=== PATIENT | female | born 1970 | race Caucasian/White ===

== ENCOUNTER → 2017-04-01 | Outpatient (CLI) | payer OTHER ==
--- NOTE | 2017-04-01 09:09 | Diagnostic Imaging Report ---
Bilateral diagnostic mammogram. The current study was also evaluated with a Computer Aided Detection (CAD) system. INDICATION: Bilateral breast pain. COMPARISON: 07/27/2011. FINDINGS: The breasts are composed of scattered fibroglandular densities. There are scattered benign-appearing calcifications. In the lateral aspect of the right CC projection, there is a 6 mm asymmetry which is evaluated with focal compression view. This demonstrates less prominent appearance of the asymmetry similar to the rest of the parenchyma suggestive of summation artifact. IMPRESSION: No mammographic evidence of malignancy. Ultrasound evaluation pending. ACR BI-RADS Category 0: Incomplete. (Needs additional imaging evaluation). Result letter will be mailed to the patient. Note: At least 10% of breast cancer is not imaged by mammography. Dictated by: Dictated on workstation # [id number]
--- NOTE | 2017-04-01 20:29 | Diagnostic Imaging Report ---
Bilateral breast ultrasound. INDICATION: Breast pain. FINDINGS: The four quadrants and retroareolar region of each breast were scanned with no underlying abnormality seen. IMPRESSION: Negative study. Clinical follow-up of patient's complaints recommended. ACR BI-RADS Category 1: Negative. Dictated by: Dictated on workstation # [id number]
== END ==
LOC: RAD 07:28
PROVIDERS: ATTEND Family Medicine
DX: N64.4 Mastodynia (principal)
CPT/HCPCS: 77066

== ENCOUNTER 2017-05-27 18:23 | Emergency (ER) | payer OTHER ==
[~2017-05-27] VITALS: Ht 170.2 cm; Wt 90.7 kg
--- NOTE | 2017-05-27 18:45 | ED General ---
General Chief Complaint: General Problems/Pain Stated Complaint: BODY ACHES,FATIGUE History of Present Illness Time Seen by Provider: 18:32 Initial Comments patient reports by private conveyance with her with a chief complaint of feeling terrible. Earlier received a call from Zoe the nurse practitioner from Dr. Eisenberg's office that the patient would be coming in because she has been recently being treated and worked up for anemia. 6 weeks ago her hemoglobin was 10.3 and she was started on iron tablets. And 2 weeks ago she was seen in the clinic and had completed a month of iron but her hemoglobin had dropped down to 7. The patient denies any blood in her vomitus or stools. No black tarry stools except when she started the iron. She is not had a period since 2011 when she had a uterine ablation at the same time she had a bladder mesh placed. She states she had a fecal occult blood test done one time in the clinic that was negative. She states she has nausea daily but this is been going on for years and she associates it with her copious rhino-secretions. she denies any blood in her vomiting. She states she does not have a doctor much and while she takes lisinopril Hydrocort thiazide, for her blood pressure she does not have any other medical history. No family history of heart disease and early age. She denies hypothyroidism or diabetes. She states she is not having any chest pain or shortness of breath however she has some left upper quadrant abdominal tenderness for the past several weeks. She had a bowel movement regular this morning but she takes laxatives daily because she has chronic constipation. Allergies and Home Medications Allergies Coded Allergies: ketorolac (Unverified Allergy, Intermediate, hives, 05/27/17) Home Medications Cephalexin 500 Mg Capsule, 500 MG PO BID for 4 Days, #8 Ref 0 Prescribed by: CESAR RODARTE on 05/27/172007 Constitutional: No chills, No diaphoresis, No dizziness, No fever, malaise EENTM: No ear pain, No eye pain, No nose congestion, No throat pain Respiratory: No cough, No short of breath Cardiovascular: No chest pain, No edema, No syncope Gastrointestinal: No abdominal pain, No constipation, No diarrhea, No nausea, No vomiting Genitourinary: No discharge, No dysuria, No incontinence Musculoskeletal: No back pain, No joint pain Skin: No pruritus, No rash Past Bubapod-Scpqci-Mnafmv Hx Patient Social History Alcohol Use: Denies Use Recreational Drug Use: No Recent Foreign Travel: No Contact w/Someone Who Travel: No Physical Exam Vital Signs Vital Sign - Last 12Hours 05/27/17 05/27/17 18:36 20:30 Temp 97.8 Pulse 90 Resp 16 B/P (MAP) 145/96 Pulse Ox 98 O2 Delivery Room Air Capillary Refill : General Appearance: No Apparent Distress, WD/WN Eyes: Bilateral Eye EOMI, Bilateral Eye Normal Inspection, Bilateral Eye PERRL HEENT: PERRL/EOMI, TMs Normal, Normal ENT Inspection, Pharynx Normal Neck: Full Range of Motion, Supple Respiratory: Chest Non Tender, Lungs Clear, Normal Breath Sounds Cardiovascular: Regular Rate, Rhythm, No Edema, No JVD Gastrointestinal: Normal Bowel Sounds, No Organomegaly, Soft Extremity: Normal Capillary Refill, No Pedal Edema Neurologic/Psychiatric: Alert, Oriented x3 Skin: Normal Color, Warm/Dry Progress/Results/Core Measures Results/Orders Lab Results Laboratory Tests Test 05/27/17 18:50 05/27/17 19:00 Range/Units Urine Color YELLOW Urine Clarity SLIGHTLY CLOUDY Urine pH 5 5-9 Urine Specific [place] 1.020 1.016-1.022 Urine Protein NEGATIVE NEGATIVE Urine Glucose (UA) NEGATIVE NEGATIVE Urine Ketones NEGATIVE NEGATIVE Urine Nitrite POSITIVE H NEGATIVE Urine Bilirubin NEGATIVE NEGATIVE Urine Urobilinogen NORMAL NORMAL MG/DL Urine Leukocyte Esterase 2+ H NEGATIVE Urine RBC (Auto) 2+ H NEGATIVE Urine RBC 2-5 H /HPF Urine WBC 2-5 /HPF Urine Squamous Epithelial Cells 10-25 H /HPF Urine Crystals NONE /LPF Urine Bacteria MODERATE H /HPF Urine Casts NONE /LPF Urine Mucus NEGATIVE /LPF Urine Culture Indicated NO White Blood Count 9.5 4.3-11.0 10^3/uL Red Blood Count 4.25 L 4.35-5.85 10^6/uL Hemoglobin 11.3 L 11.5-16.0 G/DL Hematocrit 36 35-52 % Mean Corpuscular Volume 84 80-99 FL Mean Corpuscular Hemoglobin 27 25-34 PG Mean Corpuscular Hemoglobin Concent 32 32-36 G/DL Red Cell Distribution Width 15.0 H 10.0-14.5 % Platelet Count 296 130-400 10^3/uL Mean Platelet Volume 9.6 7.4-10.4 FL Neutrophils (%) (Auto) 65 42-75 % Lymphocytes (%) (Auto) 23 12-44 % Monocytes (%) (Auto) 7 0-12 % Eosinophils (%) (Auto) 4 0-10 % Basophils (%) (Auto) 0 0-10 % Neutrophils # (Auto) 6.2 1.8-7.8 X 10^3 Lymphocytes # (Auto) 2.2 1.0-4.0 X 10^3 Monocytes # (Auto) 0.7 0.0-1.0 X 10^3 Eosinophils # (Auto) 0.4 H 0.0-0.3 10^3/uL Basophils # (Auto) 0.0 0.0-0.1 10^3/uL Prothrombin Time 13.1 12.2-14.7 SEC INR Comment 1.0 0.8-1.4 Activated Partial Thromboplast Time 25 24-35 SEC Sodium Level 138 135-145 MMOL/L Potassium Level 3.7 3.6-5.0 MMOL/L Chloride Level 99 98-107 MMOL/L Carbon Dioxide Level 25 21-32 MMOL/L Anion Gap 14 5-14 MMOL/L Blood Urea Nitrogen 14 7-18 MG/DL Creatinine 0.96 0.60-1.30 MG/DL Estimat Glomerular Filtration Rate > 60 BUN/Creatinine Ratio 15 Glucose Level 96 70-105 MG/DL Calcium Level 9.7 8.5-10.1 MG/DL Magnesium Level 2.1 1.8-2.4 MG/DL Total Bilirubin 0.3 0.1-1.0 MG/DL Aspartate Amino Transf (AST/SGOT) 14 5-34 U/L Alanine Aminotransferase (ALT/SGPT) 18 0-55 U/L Alkaline Phosphatase 90 40-136 U/L Total Protein 8.7 H 6.4-8.2 GM/DL Albumin 4.1 3.2-4.5 GM/DL Thyroid Stimulating Hormone (TSH) 1.01 0.35-4.94 UIU/ML My Orders Orders - CESAR RODARTE Cbc With Automated Diff (05/27/17 18:46) Comprehensive Metabolic Panel (05/27/17 18:46) Protime With Inr (05/27/17 18:46) Partial Thromboplastin Time (05/27/17 18:46) Thyroid Stimulating Hormone (05/27/17 18:46) Ua Culture If Indicated (05/27/17 18:46) Saline Lock/Iv-Start (05/27/17 18:46) Ns Iv 500 Ml (Sodium Chloride 0.9%) (05/27/17 18:46) Magnesium (05/27/17 18:46) Ceftriaxone Injection (Rocephin Injectio (05/27/17 20:15) Medications Given in ED Current Medications Medications Dose Ordered Sig/Milind Route Start Time Stop Time Status Last Admin Dose Admin Ceftriaxone Sodium 1000 mg/ Sodium Chloride 50 ml @ 100 mls/hr ONCE ONCE IV 05/27/17 20:15 05/27/17 20:44 DC 05/27/17 20:09 100 MLS/HR Sodium Chloride 500 ml @ 0 mls/hr Q0M ONCE IV 05/27/17 18:46 05/27/17 18:50 DC 05/27/17 19:16 0 MLS/HR Vital Signs/I&O Vital Sign - Last 12Hours 05/27/17 05/27/17 18:36 20:30 Temp 97.8 97.5 Pulse 90 72 Resp 16 16 B/P (MAP) 145/96 Pulse Ox 98 O2 Delivery Room Air Progress Note : Time: 02:18 Progress Note Hemoglobin is better than 6 weeks ago. However she has a UTI which makes points to her symptoms. We'll treat her appropriately. Departure Impression Impression: Primary Impression: UTI (urinary tract infection) Qualified Codes: N30.00 - Acute cystitis without hematuria Additional Impression: Anemia Qualified Codes: D64.9 - Anemia, unspecified Disposition: 01 HOME, SELF-CARE Condition: Stable Departure-Patient Inst. Decision time for Depature: 20:06 Referrals: CHRISTOPHER EISENBERG MD (PCP/Family) Primary Care Physician Patient Instructions: Urinary Tract Infection, Adult (DC) Add. Discharge Instructions: You have been given antibiotics for urinary tract infection in the hospital tonight. Tomorrow morning sisal picker your antibiotics and start taking them one capsule by mouth twice daily with some food. Take until completion. If you started having fevers or new worrisome symptoms you can return to the ER or follow up with your primary care physician. Please follow up your anemia with your primary care physician. All discharge instructions reviewed with patient and/or family. Voiced understanding. Scripts Cephalexin (Keflex) 500 Mg Capsule 500 MG PO BID for 4 Days, #8 CAP 0 Refills Prov: CESAR RODARTE 05/27/17 Copy Copies To 1: CHRISTOPHER EISENBERG MD, TITUS J May 27, 2017 18:45
[2017-05-27] MEDS ORDERED: NS IV 500 ML 500 ML IV ONE (18:46)
[2017-05-27 18:59] LABS: BILIRUBIN,URINE NEGATIVE (NEGATIVE); KETONES,URINE NEGATIVE (NEGATIVE); LEUKOCYTE ESTERASE ,URINE 2+ (NEGATIVE); NITRITE,URINE POSITIVE (NEGATIVE); PH,URINE 5 (5-9); PROTEIN,URINE NEGATIVE (NEGATIVE); UROBILINOGEN,URINE NORMAL (NORMAL)
[2017-05-27 19:17] LABS: BASOPHILS % (AUTO) 0 % (0-10); EOSINOPHILS # (AUTO) 0.4 10^3/uL (0.0-0.3); EOSINOPHILS % (AUTO) 4 % (0-10); LYMPHOCYTES # (AUTO) 2.2 X 10^3 (1.0-4.0); LYMPHOCYTES % (AUTO) 23 % (12-44); MEAN CORPUSCULAR HEMOGLOBIN 27 PG (25-34); MEAN CORPUSCULAR HGB CONC 32 G/DL (32-36); MEAN CORPUSCULAR VOLUME 84 FL (80-99); MEAN PLATELET VOLUME 9.6 FL (7.4-10.4); MONOCYTES # (AUTO) 0.7 X 10^3 (0.0-1.0); MONOCYTES % (AUTO) 7 % (0-12); NEUTROPHILS # (AUTO) 6.2 X 10^3 (1.8-7.8); NEUTROPHILS % (AUTO) 65 % (42-75); PLATELET COUNT 296 10^3/uL (130-400); RED BLOOD COUNT 4.25 10^6/uL (4.35-5.85); WHITE BLOOD COUNT 9.5 10^3/uL (4.3-11.0)
[2017-05-27 19:28] LABS: PROTHROMBIN TIME PATIENT 13.1 SEC (12.2-14.7)
[2017-05-27 19:38] LABS: ALANINE AMINOTRANSFERASE 18 U/L (0-55); ALBUMIN 4.1 GM/DL (3.2-4.5); ANION GAP 14 MMOL/L (5-14); ASPARTATE AMINO TRANSFERASE 14 U/L (5-34); BILIRUBIN,TOTAL 0.3 MG/DL (0.1-1.0); BLOOD UREA NITROGEN 14 MG/DL (7-18); BUN/CREATININE RATIO 15; CALCIUM 9.7 MG/DL (8.5-10.1); CARBON DIOXIDE 25 MMOL/L (21-32); CHLORIDE 99 MMOL/L (98-107); CREATININE SERUM 0.96 MG/DL (0.60-1.30); GFR ESTIMATED > 60; GLUCOSE 96 MG/DL (70-105); MAGNESIUM 2.1 MG/DL (1.8-2.4); POTASSIUM 3.7 MMOL/L (3.6-5.0); SODIUM 138 MMOL/L (135-145); TOTAL PROTEIN 8.7 GM/DL (6.4-8.2)
[2017-05-27 19:58] LABS: THYROID STIMULATING HORMONE 1.01 UIU/ML (0.35-4.94)
[2017-05-27] MEDS ORDERED: CEPH-507 PO (20:08)
[2017-05-27] MEDS ORDERED: cefTRIAXone INJECTION 1,000 MG in NS (IVPB) 50 ML IV ONE (20:15)
[2017-05-27 20:30] VITALS: BP 136/85
== END 2017-05-27 20:30 | disposition home or self-care (01) ==
LOC: EDUNIT# 18:23 → ER 18:25
DX: N39.0 Urinary tract infection, site not specified (principal); D64.9 Anemia, unspecified
CPT/HCPCS: 36415; 80053; 81000; 83735; 84443; 85025; 85610; 85730

== ENCOUNTER 2017-07-07 05:50 | Outpatient (CLI) | payer OTHER ==
[~2017-07-07] VITALS: Ht 170.2 cm; Wt 108.9 kg
[~2017-07-07 05:50] MED LIST: CEPH-507 PO
[2017-07-07] MEDS ORDERED: NALT1TAB PO (11:24)
[2017-07-07] MEDS ORDERED: FERR325T17 PO (11:24)
[2017-07-07] MEDS ORDERED: LISI1TAB10 PO (11:24)
[2017-07-07] MEDS ORDERED: OMEP40CA36 PO (11:24)
== END 2017-07-07 11:26 ==
LOC: PREOP 05:50
PROVIDERS: ATTEND Surgery
DX: Z01.818 Encounter for other preprocedural examination (principal); K21.9 Gastro-esophageal reflux disease without esophagitis; R10.13 Epigastric pain

== ENCOUNTER 2017-07-11 09:03 | Day surgery (SDC) | payer OTHER ==
[~2017-07-11] VITALS: Ht 170.2 cm; Wt 108.9 kg
[~2017-07-11 09:03] MED LIST changes: +FERR325T17 PO; +LISI1TAB10 PO; +NALT1TAB PO; +OMEP40CA36 PO
[2017-07-11 09:29] VITALS: BP 115/79
[2017-07-11] MEDS ORDERED: HURRICAINE EXT TUBE (BENZOCAINE) XX PRN (09:30)
[2017-07-11] MEDS ORDERED: NS IV 500 ML 500 ML IV PRN (09:30)
--- NOTE | 2017-07-11 10:00 | History & Physicial ---
History of Present Illness History of Present Illness Reason for visit/HPI This lady came in for an EGD following worsening symptoms of acid reflux for the past year. She reports she has stomach pain and vomits mucus. She has never had an EGD before. She denies any family history of similar symptoms. Date of Admission 07/11/2017 Date Seen by Provider: Jul 11, 2017 I consulted on this patient on 07/11/17 09:52 Attending Physician Dhruv Iqbal MD Admitting Physician Xuan Eisenberg MD Consult Allergies and Home Medications Allergies Coded Allergies: ketorolac (Unverified Allergy, Intermediate, hives, 05/27/17) Home Medications Ferrous Gluconate 324 Mg Tablet, 324 MG PO TID, (Reported) Lisinopril/Hydrochlorothiazide 1 Each Tablet, 1 EACH PO DAILY, (Reported) Naltrexone HCl/Bupropion HCl 1 Each Tablet.er, 2 EACH PO BID, (Reported) Omeprazole 40 Mg Capsule.dr, 40 MG PO DAILY, (Reported) Past Kvrfaku-Bwrubd-Apmhlh Hx Patient Social History Alcohol Use: Rarely Uses Recreational Drug Use: No Smoking Status: Never a Smoker Recent Foreign Travel: No Contact w/other who traveled: No Recent Hopitalizations: No Recent Infectious Disease Expo: No Seasonal Allergies Seasonal Allergies: No Surgeries Yes (uterine abletion) Tubal Ligation Respiratory No Cardiovascular No Neurological No Reproductive System Hx Reproductive Disorders: No Genitourinary No Gastrointestinal No Gastroesophageal Reflux Musculoskeletal No Endocrine History of Endocrine Disorders: No HEENT History of HEENT Disorders: No Psychosocial History of Psychiatric Problem: No Integumentary History of Skin or Integumenta: No Blood Transfusions History of Blood Disorders: No Physical Exam Vital Signs Vital Sign - Last 12Hours 07/11/17 09:29 Temp 97.7 Pulse 81 Resp 18 B/P (MAP) 115/79 Pulse Ox 98 O2 Delivery Room Air Capillary Refill : Respiratory: Lungs Clear, Normal Breath Sounds, No Respiratory Distress Cardiovascular: Regular Rate, Rhythm Gastrointestinal: Normal Bowel Sounds, Tenderness Rectal: Deferred Assessment/Plan Assessment and Plan EGD for GERD symptoms. Problems: [employer] STUDENT Jul 11, 2017 10:00
[2017-07-11] MEDS ORDERED: MIDAZOLAM 2 MG/2 ML (VERSED) VIAL ONE ×4 (10:12→10:13)
[2017-07-11] MEDS ORDERED: fentaNYL INJECTION 100 MCG/2 ML AMP ONE ×2 (10:12→10:32)
[2017-07-11] MEDS ORDERED: HURRICAINE EXT TUBE (BENZOCAINE) ONE (10:13)
--- NOTE | 2017-07-11 10:23 | Conscious Sedation/ASA ---
Conscious Sedation Pre-Proced Time Reviewed: 10:23 ASA Class: 2 Airway Mallampati Classification: ([place] appropriate class) I. II. III, IV Lungs Heart ASA score ASA 1: a normal healthy patient ASA 2: a patient with a mild systemic disease (mid diabetes, controlled hypertension, obesity ASA 3: a patient with a severe systemic disease that limits activity (angina , COPD, prior Myocardial infarction) ASA 4: a patient with an incapacitating disease that is a constant threat to life (CHF, renal failure) ASA 5: a moribund patient not expected to survive 24 hrs. (ruptured aneurysm) ASA 6: a declared brain patient whose organs are being harvested. For emergent operations, add the letter E after the classification Grade 2 Sedation Plan: Discussed options with patient/fam Note The patient is an appropriate candidate to undergo the planned procedure, sedation, and anesthesia. The patient immediately re-assessed prior to indication. FRAN CALL MD Jul 11, 2017 10:23 am
[2017-07-11] MEDS: fentaNYL INJECTION 100 MCG/2 ML AMP IVP PRN ×4 (10:28→10:37)
[2017-07-11] MEDS: MIDAZOLAM 2 MG/2 ML (VERSED) VIAL IVP PRN ×4 (10:29→10:38)
--- NOTE | 2017-07-11 10:54 | Endo Procedure Record ---
Endo Procedure Report Date of Procedure Jul 11, 2017 Surgeon (s) FRAN CALL MD Post Procedure/Op Diagnosis 1.esophageal stricture 2. Multiple gastric erosions and ulcers 3. Gastric polyps 4. Severe duodenitis Procedure Performed 1.upper endoscopy with antral biopsy 2. Gastric polypectomy( hot biopsy) 3. Balloon dilatation of esophageal stricture Description of Procedure Anesthesia Type: Conscious Sedation Specimen(s) collected/removed gastric mucosa. Gastric polyp Description of the Procedure Indication for procedure: This lady came in for an endoscopic assessment of symptoms of reflux disease along with epigastric pain and occasional dysphagia. Informed consent was obtained after reviewing the procedure in detail. Description of the procedure:she was placed in left lateral decubitus position and her vital signs were monitored. Conscious sedation was achieved using Versed and fentanyl. The flexible gastroscope was then introduced down the esophagus, past the stomach, into the proximal duodenum. Findings: Esophagus: A smooth, concentric distal esophageal stricture. It was dilated to 18 mm with the balloon. Stomach: 1. A few, small polyps at the distal stomach. One of them was excised. 2. Multiple distal gastric erosions and shallow ulcers. Severe distal gastritis and a streaky fashion. Biopsy for H. pylori was obtained. Duodenum: Changes of severe duodenitis but found along the first part. She tolerated the procedure well and was taken back to the nursing area in a stable condition. Impression epigastric pain and symptoms of reflux disease. Esophageal stricture , balloon dilatation completed. Multiple distal gastric erosions and ulcers. Helicobacter status pending Copies To: CHRISTOPHER WILSON MD, XAVIER M MD Jul 11, 2017 10:54 am
--- NOTE | 2017-07-11 10:58 | Discharge Inst-Simple/Standard ---
Discharge Inst-Standard Discharge Medications New, Converted or Re-Newed RX: Other Patient Instructions/Follow Up Plan of Care/Instructions/FU: To increase omeparazole to BID. Please schedule a gallbladder ultrasound as an outpatient Activity as Tolerated: Yes Discharge Diet: No Restrictions FRAN CALL MD Jul 11, 2017 10:58 am
[2017-07-11 11:05] VITALS: BP 118/78
[2017-07-11 11:35] VITALS: BP 116/77
[2017-07-11 11:55] VITALS: BP 116/77
== END 2017-07-11 11:55 | disposition home or self-care (01) ==
LOC: ENDO 09:03
PROVIDERS: ATTEND Surgery
DX: K22.2 Esophageal obstruction (principal); K25.9 Gastric ulcer, unspecified as acute or chronic, without hemorrhage or perforation; K31.7 Polyp of stomach and duodenum; Z79.899 Other long term (current) drug therapy

== ENCOUNTER → 2017-07-15 | Outpatient (CLI) | payer OTHER ==
--- NOTE | 2017-07-15 18:49 | Diagnostic Imaging Report ---
PROCEDURE: US Gallbladder. TECHNIQUE: Multiple real-time grayscale images were obtained over the right upper quadrant in various projections. INDICATION: Right upper quadrant pain. FINDINGS: There is increased echogenicity of the liver. The liver is enlarged with long axis measurement of 21 cm. The bile ducts are not dilated. No gallstones are present. The gallbladder wall is not thickened. Common bile duct measures 4 mm. Pancreas is not seen due to considerable bowel gas in the midline. The right kidney appears normal. There is no ascites. The portal and hepatic vein are patent with Doppler sampling. IMPRESSION: 1. Hepatic steatosis with hepatomegaly. 2. Bile ducts and gallbladder appear normal. Dictated by: Dictated on workstation # [id number]
== END ==
LOC: RAD 08:20
PROVIDERS: ATTEND Surgery
DX: K76.0 Fatty (change of) liver, not elsewhere classified (principal); R10.11 Right upper quadrant pain
CPT/HCPCS: 76705

== ENCOUNTER → 2018-03-30 | Outpatient (REF) ==
--- NOTE | 2018-03-30 13:41 | Diagnostic Imaging Report ---
INDICATION: Fall. Pain. COMPARISON: None. FINDINGS: Two views of the left hip are obtained. No acute fracture, malalignment or osseous destructive process is seen. Hip joint spaces preserved. IMPRESSION: Negative left hip. Dictated by: Dictated on workstation # [id number]
== END | disposition home or self-care (01) ==
LOC: OCC 12:41
PROVIDERS: ATTEND Nurse Practitioner Family
CPT/HCPCS: 73502

== ENCOUNTER 2018-12-06 08:54 | Inpatient (IN) | payer BC, OTHER | END 2018-12-09 12:40 | disposition home or self-care (01) | LOC: ER 08:54 → 4TH 11:54 | DX: K57.32 Diverticulitis of large intestine without perforation or abscess without bleeding (principal); N83.201 Unspecified ovarian cyst, right side; E87.1 Hypo-osmolality and hyponatremia; I10 Essential (primary) hypertension; K21.9 Gastro-esophageal reflux disease without esophagitis; G44.40 Drug-induced headache, not elsewhere classified, not intractable; T40.4X5A Adverse effect of other synthetic narcotics, initial encounter ==

== ENCOUNTER 2019-01-08 05:58 | Outpatient (CLI) | payer BC ==
[~2019-01-08] VITALS: Ht 170.2 cm; Wt 117.5 kg
[~2019-01-08 05:58] MED LIST changes: +AMOX-358 PO; +CYAN100015 SL; +IRON15TA3 PO; +METR500T PO; +OXYC-199 PO; +PANT40TA3 PO; +PEDI18TA2 PO; +POLY17PO6 PO; +SUCR1TAB PO
[2019-01-08] MEDS ORDERED: BACI1TAB3 PO (10:43)
[2019-01-08] MEDS ORDERED: CHOL200059 PO (10:43)
[2019-01-08] MEDS ORDERED: PSYL660P17 PO (10:43)
== END 2019-01-08 10:46 ==
LOC: PREOP 05:58
PROVIDERS: ATTEND Surgery
DX: Z01.818 Encounter for other preprocedural examination (principal)

== ENCOUNTER 2019-01-15 07:10 | Day surgery (SDC) | payer BC ==
[~2019-01-15] VITALS: Ht 170.2 cm; Wt 117.5 kg
[~2019-01-15 07:10] MED LIST changes: +BACI1TAB3 PO; +CHOL200059 PO; +PSYL660P17 PO
[2019-01-15] MEDS ORDERED: NS IV 500 ML 500 ML IV PRN (07:34)
[2019-01-15] MEDS ORDERED: NS IV 500 ML 500 ML ONE (07:36)
[2019-01-15 07:43] VITALS: BP 136/86
[2019-01-15] MEDS ORDERED: fentaNYL INJECTION 100 MCG/2 ML AMP IVP ONE (07:45)
[2019-01-15] MEDS ORDERED: MIDAZOLAM 2 MG/2 ML (VERSED) VIAL IVP ONE (07:45)
[2019-01-15] MEDS ORDERED: MIDAZOLAM 2 MG/2 ML (VERSED) VIAL ONE ×4 (08:28→08:53)
[2019-01-15] MEDS ORDERED: fentaNYL INJECTION 100 MCG/2 ML AMP ONE ×2 (08:28→08:49)
--- NOTE | 2019-01-15 08:35 | Conscious Sedation/ASA ---
Conscious Sedation Pre-Proced Time 08:35 ASA Score 2 For ASA 3 and 4: Consider anesthesia and medical clearance. Also, for patients with a history of failed moderate sedation consider anesthesia. Airway Lungs Heart ASA score ASA 1: a normal healthy patient ASA 2: a patient with a mild systemic disease (mid diabetes, controlled hypertension, obesity ASA 3: a patient with a severe systemic disease that limits activity (angina , COPD, prior Myocardial infarction) ASA 4: a patient with an incapacitating disease that is a constant threat to life (CHF, renal failure) ASA 5: a moribund patient not expected to survive 24 hrs. (ruptured aneurysm) ASA 6: a declared brain- patient whose organs are being harvested. For emergent operations, add the letter E after the classification Mallampati Classification Grade 1 Sedation Plan Discussed options with patient/fam The patient is an appropriate candidate to undergo the planned procedure, sedation, and anesthesia. The patient immediately re-assessed prior to indication. FRAN CALL MD Jan 15, 2019 08:35
[2019-01-15 09:25] VITALS: BP 134/77
--- NOTE | 2019-01-15 09:25 | Endo Procedure Record ---
Endo Procedure Report Date of Procedure Last Colonoscopy: No Jan 15, 2019 Surgeon (s) FRAN CALL MD Post Procedure/Op Diagnosis 1.3 mm polyp at the distal sigmoid colon 2. Sigmoid diverticulosis with very minimal mucosal inflammation Procedure Performed colonoscopy to cecum Snare polypectomy Description of Procedure Anesthesia Type: Conscious Sedation Specimen(s) collected/removed sigmoid polyp Description of the Procedure Indication for the procedure: This lady has recovered from an acute episode of sigmoid diverticulosis, having required hospital admission. In addition, she reported intermittent rectal bleeding over the last few days. She returned for colonoscopy to assess the extent of the diverticulosis and rule out polyps. Informed consent was obtained after reviewing the procedure in detail. Description of the procedure: She was placed in left lateral decubitus position and her vital signs were monitored. Conscious sedation was achieved using Versed and fentanyl. Examination of the perianal area revealed external hemorrhoids and some skin tags. Digital examination was unremarkable. The colonoscope was then introduced into the rectum and advanced all the way up to the cecum the scope was then withdrawn slowly and the mucosa examined in a systematic fashion. Findings 1. 3 mm polyp at the distal sigmoid colon, there was snared and retrieved 2. Sigmoid diverticulosis with very minimal mucosal inflammation. There was no stricture. She tolerated the procedure well and was taken back to the nursing area in a stable condition. Impression: Resolved sigmoid diverticulosis without any complications. Incidental sigmoid polyp excised. Recommend repeating in 5 years Copy Copies To 1: CHRISTOPHER WILSON MD, XAVIER M MD Jan 15, 2019 09:25
--- NOTE | 2019-01-15 09:26 | Discharge Inst-Simple/Standard ---
Discharge Inst-Standard Discharge Medications New, Converted or Re-Newed RX: Other Patient Instructions/Follow Up Plan of Care/Instructions/FU: repeat colonoscopy in 5 years. High fiber diet. Activity as Tolerated: Yes Discharge Diet: No Restrictions FRAN CALL MD Jan 15, 2019 09:26
[2019-01-15 09:55] VITALS: BP 130/75
[2019-01-15 10:05] VITALS: BP 130/75
== END 2019-01-15 10:05 | disposition home or self-care (01) ==
LOC: ENDO 07:10
PROVIDERS: ATTEND Surgery
DX: K63.5 Polyp of colon (principal); K57.30 Diverticulosis of large intestine without perforation or abscess without bleeding; Z87.19 Personal history of other diseases of the digestive system; Z79.899 Other long term (current) drug therapy

== ENCOUNTER → 2019-02-16 | Outpatient (CLI) | payer BC ==
--- NOTE | 2019-02-16 12:08 | Diagnostic Imaging Report ---
PROCEDURE: US Non-ob pelvis comp/trans. TECHNIQUE: Multiple realtime grayscale images were obtained of the pelvis in various projections endovaginally. Transabdominal imaging was also performed. INDICATION: Bilateral ovarian cysts, followup. COMPARISON: Correlation is made with prior ultrasound from 12/06/2018. FINDINGS: The uterus measures 7.1 x 3.7 x 3.1 cm. Endometrium is approximately 4 mm in thickness. The endometrium is heterogeneous with small cysts present, likely owing to prior intervention. There are cervical nabothian cysts present. Right ovary measures 5.0 x 2.5 x 3.6 cm and the left ovary measures 2.7 x 1.9 x 1.8 cm. There appear to be two cysts within the right ovary. A partially collapsed cyst measures 2.3 x 1.6 x 1.8 cm. A second more simple appearing cyst measures 2.4 x 1.7 x 2.2 cm. No dominant cyst is identified to account for abnormality noted in November. The left ovary is unremarkable. IMPRESSION: 1. Post-therapeutic changes to the endometrium. 2. Right ovarian cyst, decreased in size when compared with exam from 12/06/2018. Dictated by: Dictated on workstation # [id number]
== END ==
LOC: RAD 09:48
PROVIDERS: ATTEND Nurse Practitioner Family
DX: N83.201 Unspecified ovarian cyst, right side (principal)
CPT/HCPCS: 76830; 76856

== ENCOUNTER → 2020-09-04 | Outpatient (CLI) | payer OTHER ==
[~2020-09-04] MED LIST changes: -LISI1TAB10 PO; +LISI1TAB26 PO; +OMEP40CA27 PO; -OMEP40CA36 PO; -PANT40TA3 PO; +PANT40TA52 PO
--- NOTE | 2020-09-04 12:43 | Diagnostic Imaging Report ---
PROCEDURE: US left lower extremity venous. TECHNIQUE: Multiple real-time grayscale images were obtained over the left lower extremity in various projections. Additional duplex Doppler and color Doppler images were also obtained. INDICATION: Left leg pain. There is no evidence of left lower extremity DVT. Left lower extremity deep venous system shows normal compressibility with normal response to augmentation and Valsalva. There is a popliteal cyst measuring 4.4 x 1.3 x 1.2 cm. IMPRESSION: 1. No evidence of left lower extremity DVT. 2. Popliteal cyst. Dictated by: Dictated on workstation # [id number]
== END ==
LOC: RAD 11:10
PROVIDERS: ATTEND Nurse Practitioner Family
DX: M71.22 Synovial cyst of popliteal space [Baker], left knee (principal)

== ENCOUNTER 2021-07-28 18:10 | Emergency (ER) | payer OTHER ==
[~2021-07-28 18:10] MED LIST changes: +FERR324T22 PO; -FERR325T17 PO; -OMEP40CA27 PO; +OMEP40CA6 PO
--- NOTE | 2021-07-28 18:29 | ED General ---
General Chief Complaint: Cardiac/General Problems Stated Complaint: HIGH BLOOD PRESSURE Source of Information: Patient Exam Limitations: No Limitations (MICHEL MAXWELL APRN) History of Present Illness Date Seen by Provider: Jul 28, 2021 Time Seen by Provider: 18:26 Initial Comments [place] [facility] [place]. She presented there for an ongoing cough and was found to be 220/116 and referred here to the ER. She is had a cough for a couple of weeks since she was intubated for a knee arthroscopy and subsequently a left knee lipoma removal. She had a Covid swab recently that was negative. No fever no chills. She has been trying prednisone and albuterol without much relief. She also has some swelling in bilateral lower extremities. Timing/Duration: 1-2 Days Severity: Moderate Associated Systoms: Denies Symptoms (MICHEL MAXWELL APRN) Allergies and Home Medications Allergies Coded Allergies: ketorolac (Verified Allergy, Intermediate, hives, 12/06/18) Patient Home Medication List Home Medication List Reviewed: Yes (MICHEL MAXWELL APRN) Bacillus Coagulans (Probiotic) 1 Each Tab.chew, 1 EACH PO DAILY, (Reported) Entered as Reported by: EDUARDO FINCH on 01/08/19 1043 Cholecalciferol (Vitamin D3) (Vitamin D-3) 2,000 Unit Tablet, 2,000 UNIT PO DAILY, (Reported) Entered as Reported by: EDUARDO FINCH on 01/08/19 1043 Cyanocobalamin (Vitamin B-12) (Vitamin B-12) 1,000 Mcg Tab.subl, 1,000 MCG SL DAILY, (Reported) Entered as Reported by: JR FERREIRA on 12/06/18 1324 Hydrochlorothiazide (Hydrochlorothiazide) 12.5 Mg Tablet, 12.5 MG PO DAILY Prescribed by: MICHEL MAXWELL on 07/28/21 210 Ipratropium [place] (Ipratropium [place]) 0.2 Mg/1 Ml Solution, 0.2 MG IH Q4H PRN for WHEEZING Prescribed by: MICHEL MAXWELL on 07/28/21 210 Lisinopril/Hydrochlorothiazide (Lisinopril-Hctz 20-25 mg Tab) 1 Each Tablet, 1 TAB PO DAILY, (Reported) Entered as Reported by: EDUARDO FINCH on 07/07/17 1124 Pantoprazole Sodium (Pantoprazole Sodium) 40 Mg Tablet.dr, 40 MG PO DAILY, (Reported) Entered as Reported by: JR FERREIRA on 12/06/18 1324 Pedi Mv No.79/Ferrous Fumarate (Flintstones with Iron Tab Chew) 18 Mg Tab.chew, 18 MG PO DAILY, (Reported) Entered as Reported by: JR FERREIRA on 12/06/18 1326 Psyllium Husk (Metamucil) 660 Gm Powder, 30 GM PO DAILY, (Reported) Entered as Reported by: EDUARDO FINCH on 01/08/19 1043 Sucralfate (Sucralfate) 1 Gm Tablet, 1 GM PO BID, (Reported) Entered as Reported by: JR FERREIRA on 12/06/18 1324 Review of Systems Review of Systems Constitutional: see HPI; No chills, No fever EENTM: see HPI Respiratory: see HPI, cough, short of breath Cardiovascular: no symptoms reported Genitourinary: no symptoms reported Musculoskeletal: no symptoms reported Skin: no symptoms reported Psychiatric/Neurological: No Symptoms Reported Hematologic/Lymphatic: No Symptoms Reported (MICHEL MAXWELL APRN) Past Lswggpw-Aadrld-Ifjwsp Hx Immunizations Up To Date Tetanus Booster (TDap): Unknown (MICHEL MAXWELL APRN) Seasonal Allergies Seasonal Allergies: No (MICHEL MAXWELL APRN) Past Medical History Surgeries: Yes (UTERINE ABLATION) Bladder Surgery, Tonsillectomy, Tubal Ligation Respiratory: No Currently Using CPAP: No Currently Using BIPAP: No Cardiac: Yes Hypertension Neurological: No Reproductive Disorders: No HOME AID History: Tubal Ligation, Menopausal Sexually Transmitted Disease: No HIV/AIDS: No Genitourinary: No Gastrointestinal: Yes Gastroesophageal Reflux, Diverticulosis Musculoskeletal: No Endocrine: No HEENT: No Loss of Vision: Bilateral Hearing Impairment: Denies Cancer: No Psychosocial: No Integumentary: No Blood Disorders: Yes (anemia) Adverse Reaction/Blood Tranf: No (MICHEL MAXWELL APRN) Family Medical History No Pertinent Family Hx, Other Conditions/Hx (MICHEL MAXWELL APRN) Physical Exam Vital Signs Vital Signs - First Documented 07/28/21 07/28/21 18:20 21:09 Temp 36.2 Pulse 93 Resp 20 B/P (MAP) 177/98 (124) Pulse Ox 98 O2 Delivery Room Air (ZULEYMA GARBER MD) Vital Signs Capillary Refill : (MICHEL MAXWELL APRN) Height, Weight, BMI Height: 5'7.00" Weight: 259lbs. 0.0oz. 117.487462cs; 40.6 BMI Method:Stated General Appearance: No Apparent Distress, WD/WN, Obese (Blood pressure here is 177/98. Heart rate 98. Oxygen 97% on room air respiratory rate 25. Lungs are clear with good air movement and without wheezing.) Respiratory: No Accessory Muscle Use, No Respiratory Distress Cardiovascular: Regular Rate, Rhythm, Normal Peripheral Pulses Gastrointestinal: Normal Bowel Sounds, Non Tender, Soft Extremity: Normal Capillary Refill, Normal Inspection, Other (Trace pitting edema bilateral lower extremities.) Neurologic/Psychiatric: Alert, Oriented x3 Skin: Normal Color, Warm/Dry (MICHEL MAXWELL APRN) Progress/Results/Core Measures Suspected Sepsis SIRS Temperature: Pulse: Respiratory Rate: Laboratory Tests 07/28/21 18:30: White Blood Count 11.6H Blood Pressure / Mean: Laboratory Tests 07/28/21 18:30: Creatinine 0.77, Platelet Count 239, Total Bilirubin 0.3 (MICHEL MAXWELL APRN) Results/Orders Lab Results Laboratory Tests Test 07/28/21 18:30 Range/Units White Blood Count 11.6 H 4.3-11.0 10^3/uL Red Blood Count 4.29 3.80-5.11 10^6/uL Hemoglobin 11.8 11.5-16.0 g/dL Hematocrit 37 35-52 % Mean Corpuscular Volume 87 80-99 fL Mean Corpuscular Hemoglobin 28 25-34 pg Mean Corpuscular Hemoglobin Concent 32 32-36 g/dL Red Cell Distribution Width 14.6 H 10.0-14.5 % Platelet Count 239 130-400 10^3/uL Mean Platelet Volume 10.5 9.0-12.2 fL Immature Granulocyte % (Auto) 2 % Neutrophils (%) (Auto) 65 42-75 % Lymphocytes (%) (Auto) 22 12-44 % Monocytes (%) (Auto) 6 0-12 % Eosinophils (%) (Auto) 4 0-10 % Basophils (%) (Auto) 1 0-10 % Neutrophils # (Auto) 7.5 1.8-7.8 10^3/uL Lymphocytes # (Auto) 2.6 1.0-4.0 10^3/uL Monocytes # (Auto) 0.8 0.0-1.0 10^3/uL Eosinophils # (Auto) 0.5 H 0.0-0.3 10^3/uL Basophils # (Auto) 0.1 0.0-0.1 10^3/uL Immature Granulocyte # (Auto) 0.2 H 0.0-0.1 10^3/uL D-Dimer 0.46 0.00-0.49 UG/ML Sodium Level 137 135-145 MMOL/L Potassium Level 3.5 L 3.6-5.0 MMOL/L Chloride Level 105 98-107 MMOL/L Carbon Dioxide Level 21 21-32 MMOL/L Anion Gap 11 5-14 MMOL/L Blood Urea Nitrogen 10 7-18 MG/DL Creatinine 0.77 0.60-1.30 MG/DL Estimat Glomerular Filtration Rate 80 BUN/Creatinine Ratio 13 Glucose Level 211 H 70-105 MG/DL Calcium Level 8.8 8.5-10.1 MG/DL Corrected Calcium 9.1 8.5-10.1 MG/DL Magnesium Level 1.9 1.6-2.4 MG/DL Total Bilirubin 0.3 0.1-1.0 MG/DL Aspartate Amino Transf (AST/SGOT) 22 5-34 U/L Alanine Aminotransferase (ALT/SGPT) 33 0-55 U/L Alkaline Phosphatase 87 40-136 U/L Troponin I < 0.028 <0.028 NG/ML B-Type Natriuretic Peptide 117.4 H <100.0 PG/ML Total Protein 7.2 6.4-8.2 GM/DL Albumin 3.6 3.2-4.5 GM/DL Procalcitonin 0.02 <0.10 NG/ML Thyroid Stimulating Hormone (TSH) 1.18 0.35-4.94 UIU/ML Free Thyroxine 1.17 0.70-1.48 NG/DL (ZULEYMA GARBER MD) Medications Given in ED Current Medications Medications Dose Ordered Sig/Milind Route Start Time Stop Time Status Last Admin Dose Admin Acetaminophen/ Hydrocodone Bitart 1 ea ONCE ONCE PO 07/28/21 20:00 07/28/21 20:01 DC 07/28/21 19:56 1 EA Albuterol/ Ipratropium 3 ml ONCE ONCE INH 07/28/21 19:45 07/28/21 19:46 DC 07/28/21 19:47 3 ML Clonidine HCl 0.1 mg ONCE ONCE PO 07/28/21 19:15 07/28/21 19:16 DC 07/28/21 19:36 0.1 MG (ZULEYMA GARBER MD) Vital Signs/I&O 07/28/21 07/28/21 18:20 21:09 Temp 36.2 36.2 Pulse 93 85 Resp 20 20 B/P (MAP) 177/98 (124) 177/106 Pulse Ox 98 98 O2 Delivery Room Air (ZULEYMA GARBER MD) Vital Signs/I&O Capillary Refill : (MICHEL MAXWELL APRN) Departure Communication (Admissions) Family Conversation 2101-cough is "much better". I will add some ipratropium to her home albuterol that she has for the nebulizer. She has plenty of hydrocodone left over from her surgery which she will take for cough. I will also start her on some HCTZ for hypertension and her pedal edema. NAME: LAUREEN PANCHAL [facility] REC#: [id number] PT STATUS: REG ER : 1970 PHYSICIAN: MICHEL MAXWELL APRN ADMIT DATE: 07/28/21/ER Draft Date of Exam:07/28/21 CHEST 1 VIEW, AP/PA ONLY INDICATION: Cough COMPARISON: None available. TECHNIQUE: Single radiograph of the chest dated 07/28/2021 FINDINGS: The cardiac silhouette is mildly enlarged. No significant pulmonary vascular congestion. The lungs are clear. No pleural effusion. No pneumothorax. No acute osseous abnormality. IMPRESSION: Mild cardiomegaly, which is likely accentuated by patient body habitus. No significant pulmonary vascular congestion. Dictated on workstation # [id number] Dict: 07/28/211901 Trans: 07/28/211909 DIMITRIOS [id number] Interpreted by: KELBY JAVIER MD Electronically signed by: (MICHEL MAXWELL APRN) Impression Primary Impression: intractable cough Additional Impression: Persistent cough for 3 weeks or longer Disposition: 01 HOME, SELF-CARE Condition: Stable Departure-Patient Inst. Decision time for Depature: 20:00 (MICHEL MAXWELL APRN) Referrals: CHRISTOPHER WILSON MD (PCP/Family) Primary Care Physician Patient Instructions: Cough, Adult (DC) Add. Discharge Instructions: 1. Follow-up with primary care for further evaluation of these symptoms. Return to ER for any concerns. All discharge instructions reviewed with patient and/or family. Voiced understanding. Scripts Ipratropium [place] (Ipratropium [place]) 0.2 Mg/1 Ml Solution 0.2 MG IH Q4H PRN for WHEEZING, #25 EA mix with albuterol for nebulizer every 4 hours Prov: MICHEL MAXWELL APRN 07/28/21 Hydrochlorothiazide (Hydrochlorothiazide) 12.5 Mg Tablet 12.5 MG PO DAILY, #14 TAB Prov: MICHEL MAXWELL APRN 07/28/21 Work/School Note: Work Release Form Date Seen in the Emergency Department: Jul 28, 2021 Return to Work: Jul 30, 2021 ATTENDING PHYSICIAN NOTE: I was physically present as attending physician in the emergency department during the care of this patient, but I was not directly involved in the decision making or delivery of care for this patient. (ZULEYMA GARBER MD) Copy Copies To 1: CHRISTOPHER WILSON MD, PETER J APRN Jul 28, 2021 18:29 ZULEYMA GARBER MD Jul 29, 2021 05:37
[2021-07-28 18:50] LABS: BASOPHILS # (AUTO) 0.1 10^3/uL (0.0-0.1); BASOPHILS % (AUTO) 1 % (0-10); EOSINOPHILS # (AUTO) 0.5 10^3/uL (0.0-0.3); EOSINOPHILS % (AUTO) 4 % (0-10); HEMATOCRIT 37 % (35-52); HEMOGLOBIN 11.8 g/dL (11.5-16.0); LYMPHOCYTES # (AUTO) 2.6 10^3/uL (1.0-4.0); LYMPHOCYTES % (AUTO) 22 % (12-44); MEAN CORPUSCULAR HEMOGLOBIN 28 pg (25-34); MEAN CORPUSCULAR HGB CONC 32 g/dL (32-36); MEAN CORPUSCULAR VOLUME 87 fL (80-99); MEAN PLATELET VOLUME 10.5 fL (9.0-12.2); MONOCYTES # (AUTO) 0.8 10^3/uL (0.0-1.0); MONOCYTES % (AUTO) 6 % (0-12); NEUTROPHILS # (AUTO) 7.5 10^3/uL (1.8-7.8); NEUTROPHILS % (AUTO) 65 % (42-75); PLATELET COUNT 239 10^3/uL (130-400); WHITE BLOOD COUNT 11.6 10^3/uL (4.3-11.0)
[2021-07-28 18:52] LABS: ALBUMIN 3.6 GM/DL (3.2-4.5)
[2021-07-28 18:53] LABS: CHLORIDE 105 MMOL/L (98-107); POTASSIUM 3.5 MMOL/L (3.6-5.0); SODIUM 137 MMOL/L (135-145)
[2021-07-28 18:54] LABS: CALCIUM 8.8 MG/DL (8.5-10.1)
[2021-07-28 18:55] LABS: GLUCOSE 211 MG/DL (70-105); TOTAL PROTEIN 7.2 GM/DL (6.4-8.2)
[2021-07-28 18:56] LABS: CARBON DIOXIDE 21 MMOL/L (21-32)
[2021-07-28 18:57] LABS: BILIRUBIN,TOTAL 0.3 MG/DL (0.1-1.0)
[2021-07-28 18:58] LABS: ALKALINE PHOSPHATASE 87 U/L (40-136)
[2021-07-28 18:59] LABS: CREATININE SERUM 0.77 MG/DL (0.60-1.30); GFR ESTIMATED 80
[2021-07-28 19:00] LABS: BUN/CREATININE RATIO 13
[2021-07-28 19:02] LABS: ALANINE AMINOTRANSFERASE 33 U/L (0-55); MAGNESIUM 1.9 MG/DL (1.6-2.4)
--- NOTE | 2021-07-28 19:10 | Diagnostic Imaging Report ---
INDICATION: Cough COMPARISON: None available. TECHNIQUE: Single radiograph of the chest dated 07/28/2021 FINDINGS: The cardiac silhouette is mildly enlarged. No significant pulmonary vascular congestion. The lungs are clear. No pleural effusion. No pneumothorax. No acute osseous abnormality. IMPRESSION: Mild cardiomegaly, which is likely accentuated by patient body habitus. No significant pulmonary vascular congestion. Dictated by: Dictated on workstation # [id number]
[2021-07-28] MEDS ORDERED: cloNIDine 0.1 MG (CATAPRES) TAB PO ONE (19:15)
[2021-07-28 19:23] LABS: FREE T4 (FREE THYROXINE) 1.17 NG/DL (0.70-1.48)
[2021-07-28] MEDS ORDERED: RT-ALBUTEROL/IPRATROPIUM 3 ML (DUONEB) VIAL INH ONE (19:45)
[2021-07-28] MEDS ORDERED: HYDROcodone/APAP 5 MG/325 MG (LORTAB) TAB PO ONE (20:00)
[2021-07-28] MEDS ORDERED: HYDR12.56 PO (21:04)
[2021-07-28] MEDS ORDERED: IPRA0.2S51 IH (21:04)
[2021-07-28 21:09] VITALS: BP 177/106
== END 2021-07-28 21:08 | disposition home or self-care (01) ==
LOC: EDUNIT# 18:10 → ER 18:13
DX: R05 Cough (principal); I10 Essential (primary) hypertension; K21.9 Gastro-esophageal reflux disease without esophagitis; E66.9 Obesity, unspecified; Z68.41 Body mass index [BMI] 40.0-44.9, adult; Z79.899 Other long term (current) drug therapy
CPT/HCPCS: 36415; 71045; 80053; 83735; 83880; 84145; 84439; 84443; 84484; 85025; 85379; 93005

== ENCOUNTER 2023-01-22 17:07 | Emergency (ER) | payer BC ==
[~2023-01-22] VITALS: Ht 167.7 cm; Wt 110.7 kg
[~2023-01-22 17:07] MED LIST changes: +HYDR12.56 PO; +IPRA0.2S51 IH; -LISI1TAB26 PO; +LISI1TAB48 PO
[2023-01-22 17:39] LABS: BASOPHILS # (AUTO) 0.1 10^3/uL (0.0-0.1); BASOPHILS % (AUTO) 1 % (0-10); EOSINOPHILS # (AUTO) 0.3 10^3/uL (0.0-0.3); EOSINOPHILS % (AUTO) 4 % (0-10); HEMATOCRIT 34 % (35-52); HEMOGLOBIN 11.5 g/dL (11.5-16.0); LYMPHOCYTES # (AUTO) 1.8 10^3/uL (1.0-4.0); LYMPHOCYTES % (AUTO) 24 % (12-44); MEAN CORPUSCULAR HEMOGLOBIN 28 pg (25-34); MEAN CORPUSCULAR HGB CONC 34 g/dL (32-36); MEAN CORPUSCULAR VOLUME 80 fL (80-99); MEAN PLATELET VOLUME 11.4 fL (9.0-12.2); MONOCYTES # (AUTO) 0.5 10^3/uL (0.0-1.0); MONOCYTES % (AUTO) 7 % (0-12); NEUTROPHILS # (AUTO) 4.8 10^3/uL (1.8-7.8); NEUTROPHILS % (AUTO) 65 % (42-75); PLATELET COUNT 187 10^3/uL (130-400); WHITE BLOOD COUNT 7.4 10^3/uL (4.3-11.0)
--- NOTE | 2023-01-22 17:46 | ED General ---
General Chief Complaint: Glucose Problems Stated Complaint: BLOODSUGAR COMPLICATION Nursing Triage Note: PT AMB TO ED BY POV WITH C/O HYPERGLYCEMIA, HOLLEY AND NAUSEA. PT REPORT SHE BEGAN HAVING A HOLLEY AND NAUSEA TODAY WHILE ON HER WAY HOME FROM [facility], CHECKED HER BLOOD SUGAR AND IT WAS 578. PT REPORTS SHE HAS BEEN TOLD SHE IS PREDIABETIC IN THE PAST, BUT QUIT TAKING THE METFORMIN SHE WAS PRESCRIBED APPROX 3 MONTHS AGO BECAUSE IT GAVE HER DIARRHEA. Source of Information: Patient Exam Limitations: No Limitations History of Present Illness Date Seen by Provider: Jan 22, 2023 Time Seen by Provider: 17:21 Initial Comments 52-year-old female presents to the ED with complaints of not feeling well starting last night. States she checked her blood sugar last night and it was elevated. Checked again this morning and it was 315. She reports headache, nausea, and epigastric pain. Reports she is constantly thirsty, and has been urinating more frequently. Denies any vomiting, fever, chest pain, shortness of air, dysuria. She was told that she is prediabetic, she was on metformin but stopped taking it approximately 3 months ago due to diarrhea. Past medical history includes asthma, GERD, hypertension. Currently takes omeprazole, losartan, hydrochlorothiazide, atorvastatin, aspirin 81 mg, Zyrtec, co-Q10, Aleve. Allergies and Home Medications Allergies Coded Allergies: ketorolac (Verified Allergy, Intermediate, hives, 12/06/18) Patient Home Medication List Home Medication List Reviewed: Yes Bacillus Coagulans (Probiotic) 1 Each Tab.chew, 1 EACH PO DAILY, (Reported) Entered as Reported by: EDUARDO FINCH on 01/08/19 1043 Cholecalciferol (Vitamin D3) (Vitamin D-3) 2,000 Unit Tablet, 2,000 UNIT PO DAILY, (Reported) Entered as Reported by: EDUARDO FINCH on 01/08/19 1043 Cyanocobalamin (Vitamin B-12) (Vitamin B-12) 1,000 Mcg Tab.subl, 1,000 MCG SL DAILY, (Reported) Entered as Reported by: JR FERREIRA on 12/06/18 1324 Hydrochlorothiazide (Hydrochlorothiazide) 12.5 Mg Tablet, 12.5 MG PO DAILY Prescribed by: MICHEL MAXWELL on 07/28/212103 Ipratropium [place] (Ipratropium [place]) 0.2 Mg/1 Ml Solution, 0.2 MG IH Q4H PRN for WHEEZING Prescribed by: MICHEL MAXWELL on 07/28/21 210 Lisinopril/Hydrochlorothiazide (Lisinopril-Hctz 20-25 mg Tab) 1 Each Tablet, 1 TAB PO DAILY, (Reported) Entered as Reported by: EDUARDO FINCH on 07/07/17 1124 Pantoprazole Sodium (Pantoprazole Sodium) 40 Mg Tablet.dr, 40 MG PO DAILY, (Reported) Entered as Reported by: JR FERREIRA on 12/06/18 1324 Pedi Mv No.79/Ferrous Fumarate (Flintstones with Iron Tab Chew) 18 Mg Tab.chew, 18 MG PO DAILY, (Reported) Entered as Reported by: JR FERREIRA on 12/06/18 1326 Psyllium Husk (Metamucil) 660 Gm Powder, 30 GM PO DAILY, (Reported) Entered as Reported by: EDUARDO FINCH on 01/08/19 1043 Sucralfate (Sucralfate) 1 Gm Tablet, 1 GM PO BID, (Reported) Entered as Reported by: JR FERREIRA on 12/06/18 1324 Review of Systems Review of Systems Constitutional: see HPI Past Qikdion-Jszzqi-Kotaxi Hx Patient Social History Tobacco Use?: No Use of E-Cig and/or Vaping dev: No Substance use?: No Alcohol Use?: No Pt feels they are or have been: No Immunizations Up To Date Tetanus Booster (TDap): Unknown Influenza Vaccine Up-to-Date: No; Not Current First/Initial COVID19 Vaccinat: FEBRUARY 2021 Second COVID19 Vaccination Clem: MARCH 2021 Third COVID19 Vaccination Date: FEBRUARY 2021 Seasonal Allergies Seasonal Allergies: No Past Medical History Surgery/Hospitalization HX: ASTHMA, REFLUX TUBAL Surgeries: Yes (UTERINE ABLATION) Bladder Surgery, Tonsillectomy, Tubal Ligation Respiratory: No Currently Using CPAP: No Currently Using BIPAP: No Cardiac: Yes Hypertension Neurological: No 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, Menopausal Sexually Transmitted Disease: No HIV/AIDS: No Genitourinary: No Gastrointestinal: Yes Gastroesophageal Reflux, Diverticulosis Musculoskeletal: No Endocrine: No HEENT: No Loss of Vision: Bilateral Hearing Impairment: Denies Cancer: No Psychosocial: No Integumentary: No Blood Disorders: Yes (anemia) Adverse Reaction/Blood Tranf: No Family Medical History No Pertinent Family Hx, Other Conditions/Hx Physical Exam Vital Signs Vital Signs - First Documented 01/22/23 17:15 Temp 37.0 Pulse 89 Resp 16 B/P (MAP) 153/92 (112) Pulse Ox 97 O2 Delivery Room Air Capillary Refill : Less Than 3 Seconds Height, Weight, BMI Height: 5'7.00" Weight: 259lbs. 0.0oz. 117.066655rh; 39.00 BMI Method:Stated General Appearance: No Apparent Distress, WD/WN Neck: Normal Inspection, Supple Respiratory: Lungs Clear, Normal Breath Sounds, No Accessory Muscle Use, No Respiratory Distress Cardiovascular: Regular Rate, Rhythm, No Edema, No Gallop, No JVD, No Murmur Gastrointestinal: Normal Bowel Sounds, No Organomegaly, No Pulsatile Mass, Soft, Tenderness (Mild tenderness to epigastric area) Extremity: Normal Inspection, Normal Range of Motion Neurologic/Psychiatric: Alert, Oriented x3, Normal Mood/Affect Skin: Normal Color, Warm/Dry Progress/Results/Core Measures Suspected Sepsis SIRS Temperature: Pulse: 89 Respiratory Rate: 16 Laboratory Tests 01/22/23 17:30: White Blood Count 7.4 Blood Pressure 153 /92 Mean: 112 Laboratory Tests 01/22/23 17:30: Creatinine 1.15, Platelet Count 187, Total Bilirubin 0.4 Results/Orders Lab Results Laboratory Tests Test 01/22/23 17:17 01/22/23 17:30 01/22/23 17:34 01/22/23 20:05 Range/Units Glucometer 414 *H 361 H 70-110 MG/DL White Blood Count 7.4 4.3-11.0 10^3/uL Red Blood Count 4.17 3.80-5.11 10^6/uL Hemoglobin 11.5 11.5-16.0 g/dL Hematocrit 34 L 35-52 % Mean Corpuscular Volume 80 80-99 fL Mean Corpuscular Hemoglobin 28 25-34 pg Mean Corpuscular Hemoglobin Concent 34 32-36 g/dL Red Cell Distribution Width 14.4 10.0-14.5 % Platelet Count 187 130-400 10^3/uL Mean Platelet Volume 11.4 9.0-12.2 fL Immature Granulocyte % (Auto) 0 % Neutrophils (%) (Auto) 65 42-75 % Lymphocytes (%) (Auto) 24 12-44 % Monocytes (%) (Auto) 7 0-12 % Eosinophils (%) (Auto) 4 0-10 % Basophils (%) (Auto) 1 0-10 % Neutrophils # (Auto) 4.8 1.8-7.8 10^3/uL Lymphocytes # (Auto) 1.8 1.0-4.0 10^3/uL Monocytes # (Auto) 0.5 0.0-1.0 10^3/uL Eosinophils # (Auto) 0.3 0.0-0.3 10^3/uL Basophils # (Auto) 0.1 0.0-0.1 10^3/uL Immature Granulocyte # (Auto) 0.0 0.0-0.1 10^3/uL Venous Blood pH 7.40 7.31-7.41 Venous Blood Partial Pressure CO2 45 40-52 MMHG Venous Blood HCO3 27 22-28 MMOL/L Sodium Level 131 L 135-145 MMOL/L Potassium Level 3.1 L 3.6-5.0 MMOL/L Chloride Level 94 L 98-107 MMOL/L Carbon Dioxide Level 23 21-32 MMOL/L Anion Gap 14 5-14 MMOL/L Blood Urea Nitrogen 16 7-18 MG/DL Creatinine 1.15 0.60-1.30 MG/DL Estimat Glomerular Filtration Rate 58 BUN/Creatinine Ratio 14 Glucose Level 464 *H 70-105 MG/DL Calcium Level 9.2 8.5-10.1 MG/DL Corrected Calcium 9.3 8.5-10.1 MG/DL Phosphorus Level 3.5 2.3-4.7 MG/DL Total Bilirubin 0.4 0.1-1.0 MG/DL Aspartate Amino Transf (AST/SGOT) 33 5-34 U/L Alanine Aminotransferase (ALT/SGPT) 34 0-55 U/L Alkaline Phosphatase 86 40-136 U/L Total Protein 8.2 6.4-8.2 GM/DL Albumin 3.9 3.2-4.5 GM/DL Amylase Level 27 25-125 U/L Lipase 66 8-78 U/L Beta-Hydroxybutyrate (Chem panel) 0.08 0.00-0.27 MMOL/L Urine Color YELLOW Urine Clarity CLEAR Urine pH 6.0 5-9 Urine Specific [place] 1.010 L 1.016-1.022 Urine Protein NEGATIVE NEGATIVE Urine Glucose (UA) 3+ H NEGATIVE Urine Ketones NEGATIVE NEGATIVE Urine Nitrite POSITIVE H NEGATIVE Urine Bilirubin NEGATIVE NEGATIVE Urine Urobilinogen 1.0 < = 1.0 MG/DL Urine Leukocyte Esterase NEGATIVE NEGATIVE Urine RBC (Auto) NEGATIVE NEGATIVE Urine RBC NONE /HPF Urine WBC 0-2 /HPF Urine Squamous Epithelial Cells 5-10 /HPF Urine Crystals NONE /LPF Urine Bacteria LARGE H /HPF Urine Casts NONE /LPF Urine Mucus NEGATIVE /LPF Urine Culture Indicated YES Test 01/22/23 21:01 Range/Units Glucometer 255 H 70-110 MG/DL My Orders Orders - MARCELA WITT APRN Accucheck Stat ONCE (01/22/23 17:18) Cbc With Automated Diff (01/22/23 17:27) Comprehensive Metabolic Panel (01/22/23 17:27) Ua Culture If Indicated (01/22/23 17:27) Ed Iv/Invasive Line Start (01/22/23 17:27) Phosphorus (01/22/23 17:27) Beta Hydroxybutyrate (01/22/23 17:27) Venous Blood Gas (01/22/23 17:27) Amylase (01/22/23 17:46) Lipase (01/22/23 17:46) Ondansetron Injection (Zofran Injectio (01/22/23 18:00) Ns Iv 1000 Ml (Sodium Chloride 0.9%) (01/22/23 18:00) Ns Iv 1000 Ml (Sodium Chloride 0.9%) (01/22/23 18:15) Ondansetron Injection (Zofran Injectio (01/22/23 18:12) Urine Culture (01/22/23 17:34) Potassium Chloride (Tablet) (K Dur Table (01/22/23 18:45) Ibuprofen Tablet (Motrin Tablet) (01/22/23 18:45) Accucheck Stat ONCE (01/22/23 20:01) Insulin (Regular) Human (Novolin R (Per (01/22/23 20:15) Accucheck Stat ONCE (01/22/23 20:59) Medications Given in ED Current Medications Medications Dose Ordered Sig/Milind Route Start Time Stop Time Status Last Admin Dose Admin Ibuprofen 800 mg ONCE ONCE PO 3/11/23 18:45 01/22/23 18:46 DC 01/22/23 18:51 800 MG Insulin Human Regular 5 unit ONCE ONCE IV 01/22/23 20:15 01/22/23 20:16 DC 01/22/23 20:18 5 UNIT Ondansetron HCl 4 mg ONCE ONCE IVP 01/22/23 18:00 01/22/23 18:01 DC 01/22/23 18:10 4 MG Potassium Chloride 40 meq ONCE ONCE PO 01/22/23 18:45 01/22/23 18:46 DC 01/22/23 18:51 40 MEQ Vital Signs/I&O 01/22/23 17:15 Temp 37.0 Pulse 89 Resp 16 B/P (MAP) 153/92 (112) Pulse Ox 97 O2 Delivery Room Air Capillary Refill : Less Than 3 Seconds Blood Pressure Mean: 112 Point of Care Testing Finger Stick Blood Glucose: 414 Blood Glucose Action Taken: PROVIDER NOTIFIED Progress Note #1: Time: 17:49 Progress Note Patient seen and evaluated, resting comfortably bed, no acute distress. Based on exam and symptoms, concern for DKA, hyperglycemia. Work-up initiated including CBC, CMP, amylase, lipase, phosphorus, venous blood gas, beta hydroxybutyrate. IV fluids and Zofran ordered. Progress Note #2: Time: 18:45 Progress Note Labs reviewed. CBC grossly normal, WBC 7.4, hemoglobin 11.5, hematocrit slightly decreased 34. CMP shows decreased sodium 131, decreased potassium 3.1, decreased chloride 94. Creatinine 1.15, GFR 58, BUN 16, last kidney function were drawn 08/04 which showed creatinine 0.77, BUN 10, GFR 80. Glucose critical at 464. Amylase and lipase normal. Beta hydroxybutyrate normal at 0.08. Urinalysis shows 3+ glucose, positive nitrite, large bacteria, negative for leukocytes, 0-2 WBC, ketones negative. Will not treat for UTI at this time due to no symptoms of UTI. Only possible symptom is increased urination, this is likely due to increased glucose. Venous pH normal 7.40. Phosphorus normal 3.5. Results discussed with patient. Patient still complaining of a headache, will order ibuprofen for headache and potassium for low potassium. We will recheck glucose after IV fluids are finished infusing. Progress Note #3: Time: 20:15 Progress Note Blood sugar after IV fluids was 361, IV insulin ordered. Progress Note #4: Time: 21:03 Progress Note Repeat blood sugar 255. Patient reevaluated this time. States she is feeling better, her headache is gone. Will discharge at this time, patient is agreeable to discharge. Discharge instructions and return precautions provided. Departure Impression Primary Impression: Hyperglycemia Disposition: 01 HOME, SELF-CARE Condition: Stable Departure-Patient Inst. Decision time for Depature: 21:03 Referrals: CHRISTOPHER WILSON MD (PCP/Family) Primary Care Physician Patient Instructions: Type 2 Diabetes (DC) Add. Discharge Instructions: Follow-up with primary care provider. Continue monitoring your blood sugar. Return for elevated blood sugar, abdominal pain, recurrent vomiting, or any other new, concerning, or worsening symptoms. All discharge instructions reviewed with patient and/or family. Voiced understanding. MARCELA WITT APRN Jan 22, 2023 17:46
[2023-01-22 17:52] LABS: ALBUMIN 3.9 GM/DL (3.2-4.5); POTASSIUM 3.1 MMOL/L (3.6-5.0)
[2023-01-22 17:53] LABS: CALCIUM 9.2 MG/DL (8.5-10.1)
[2023-01-22 17:55] LABS: TOTAL PROTEIN 8.2 GM/DL (6.4-8.2)
[2023-01-22 17:56] LABS: BILIRUBIN,TOTAL 0.4 MG/DL (0.1-1.0)
[2023-01-22 17:58] LABS: CREATININE SERUM 1.15 MG/DL (0.60-1.30); PHOSPHORUS 3.5 MG/DL (2.3-4.7)
[2023-01-22 17:58] LABS: BILIRUBIN,URINE NEGATIVE (NEGATIVE); CLARITY,URINE CLEAR; COLOR,URINE YELLOW; GLUCOSE, URINE (UA) 3+ (NEGATIVE); KETONES,URINE NEGATIVE (NEGATIVE); LEUKOCYTE ESTERASE ,URINE NEGATIVE (NEGATIVE); NITRITE,URINE POSITIVE (NEGATIVE); PROTEIN,URINE NEGATIVE (NEGATIVE)
[2023-01-22] MEDS ORDERED: ONDANSETRON 4 MG/2 ML (SDV) Z0FRAN IVP ONE (18:00)
[2023-01-22] MEDS ORDERED: NS IV 1000 ML 1,000 ML IV SCH ×2 (18:00→18:15)
[2023-01-22 18:04] LABS: LIPASE 66 U/L (8-78)
[2023-01-22] MEDS ORDERED: ONDANSETRON 4 MG/2 ML (SDV) Z0FRAN ONE (18:12)
[2023-01-22 18:13] LABS: AMYLASE 27 U/L (25-125)
[2023-01-22 18:17] LABS: BACTERIA,URINE LARGE /HPF; WBC,URINE 0-2 /HPF
[2023-01-22] MEDS ORDERED: KCL 20 MEQ TAB (K-DUR) PO ONE (18:45)
[2023-01-22] MEDS ORDERED: IBUPROFEN 800 MG (MOTRIN) TAB PO ONE (18:45)
[2023-01-22] MEDS ORDERED: inSUlin (REGULAR) HUMAN 1 UNIT/0.01 ML (CHARGE PER UNIT) IV ONE (20:15)
[2023-01-22 21:10] VITALS: BP 145/88
[2023-01-26] MEDS ORDERED: NITR-65 PO (11:33)
== END 2023-01-22 21:10 | disposition home or self-care (01) ==
LOC: EDUNIT# 17:07 → ER 17:11
DX: E11.65 Type 2 diabetes mellitus with hyperglycemia (principal); I10 Essential (primary) hypertension; K21.9 Gastro-esophageal reflux disease without esophagitis; J45.909 Unspecified asthma, uncomplicated; E87.1 Hypo-osmolality and hyponatremia; Z79.82 Long term (current) use of aspirin; Z79.899 Other long term (current) drug therapy; Z79.84 Long term (current) use of oral hypoglycemic drugs
CPT/HCPCS: 36415; 80053; 81000; 82010; 82150; 82805; 82947; 83690; 84100; 85025; 87077; 87088; 87186

== ENCOUNTER → 2023-07-22 | Outpatient (CLI) | payer BC ==
[~2023-07-22] MED LIST changes: +NITR-65 PO
--- NOTE | 2023-07-22 12:24 | Diagnostic Imaging Report ---
INDICATION: Palpable lump right axilla. Correlation is made prior mammogram from 04/01/2017. 2-D and 3-D bilateral diagnostic mammography was performed with CAD. BB marker was placed at the area of palpable abnormality in the right axilla. Scattered fibroglandular densities are identified bilaterally. There are scattered calcifications bilaterally. No mass or malignant-appearing microcalcifications are detected. Axillae are unremarkable. Specifically, the area of palpable abnormality on the right shows no underlying abnormality. IMPRESSION: No mammographic features suspicious for malignancy are identified. Even so, directed sonographic interrogation of the area of palpable abnormality in the right axilla is recommended and will be performed today. ACR BI-RADS Category 0: Incomplete. (Needs additional imaging evaluation). Result letter will be mailed to the patient. Note: At least 10% of breast cancer is not imaged by mammography. BI-RADS Category 0 Dictated by: Dictated on workstation # [id number]
--- NOTE | 2023-07-22 13:17 | Diagnostic Imaging Report ---
Indication: Palpable lump right axilla. Sonographic interrogation of the area of palpable abnormality in the right axilla was performed. There are 2 fatty lymph nodes present, the largest 1.5 x 0.6 x 1.7 cm. Both demonstrate a thin cortex. No concerning mass is identified. No fluid collection is identified. IMPRESSION: BI-RADS Category 2 Benign-appearing lymph nodes in the right axilla, corresponding to the palpable abnormality. ACR BI-RADS Category 2: Benign findings. Result letter will be mailed to the patient. Note: At least 10% of breast cancer is not imaged by mammography. Dictated by: Dictated on workstation # [id number]
== END ==
LOC: RAD 11:46
PROVIDERS: ATTEND Nurse Practitioner
DX: N63.31 Unspecified lump in axillary tail of the right breast (principal)
CPT/HCPCS: 76642; 77066; G0279; 77062